=== PATIENT | male | born 1940 | race Caucasian/White ===

== ENCOUNTER 2023-11-08 11:13 | Outpatient (AMB) | payer OTHER, SELFPAY ==
--- NOTE | 2023-11-08 11:22 | MHC.PC.OV ---
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 Division Operations Specialist Required: No Allergies No Known Allergies Allergy (Verified 11/08/23 11:27) Tobacco use date assessed: 11/08/23 Fall risk assessment: No Falls in past year Dental Screening Dental Screen Date: 11/08/23 Did you have a dental visit in the last 12 months?: No Did you have a dental problem in the last 6 months where you did not have access to dental care?: No HPI HPI Comments History of Present Illness Details This is an 83-year-old male with a past medical history of tobacco use disorder, colon cancer, CKD 3A, microscopic hematuria, osteoporosis, BPH, COPD with emphysema, hyperlipidemia and PAD presenting to [facility]. He relocated to [place] from [place] 4 months ago. He lives independently. His sister is local. He is from this area originally. His of 31 years several years ago. The patient had colon cancer some 10 years ago. Patient says he had surgery to remove part of his intestine. He says he did not have chemotherapy or radiation. He denies known recurrence. He saw his specialist shortly before leaving [place] for a follow up appointment. He takes simvastatin and fenofibrate for hyperlipidemia. Patient says he saw a show horse driver within the past year in [place]. They told him his heart was doing good. He was seeing Urology for microscopic hematuria and BPH. Denies frequency, eduin hematuria, hesitancy. He has a history of COPD with emphysema, but he says he has never required medications for this. He denies cough, wheezing and shortness of breath. He smokes 10 cigarettes per day. He has not interested in quitting currently. [facility] Medical History (Updated 11/08/23 @ 16:40 by YEVGENIY Smiley) Tobacco use disorder History of colon cancer CKD stage 3a, GFR 45-59 ml/min Microscopic hematuria Osteoporosis Vitamin D deficiency Hyperuricemia BPH (benign prostatic hyperplasia) Chronic bronchitis with emphysema Hyperlipidemia PAD (peripheral artery disease) Atherosclerosis of aorta Surgical History (Updated 11/08/23 @ 16:34 by YEVGENIY Smiley) History of colectomy Family History (Updated 11/08/23 @ 12:15 by YEVGENIY Smiley) Brother Cancer Social History Housing: Apartment Patient Tobacco Use Status: Current everyday Tobacco user Tobacco use type: Cigarette (5-10 a day) Cigarettes Per Day: 5 e-Cigarette/Vaping Use: Never Used Second Hand Smoke Exposure: No service: No Current occupational status: retired Current occupational exposures/hazards: No Cognitive needs: No Hearing needs: No Vision needs: Yes Questionnaire PHQ-9 Over the last 2 weeks, how often have you been bothered by any of the following problems? 1. Little interest or pleasure in doing things: not at all 2. Feeling down, depressed, or hopeless: not at all 3. Trouble falling or staying asleep, or sleeping too much: not at all 4. Feeling tired or having little energy: not at all 5. Poor appetite or overeating: not at all 6. Feeling bad about yourself - or that you are a failure or have let yourself or your family down: not at all 7. Trouble concentrating on things, such as reading the newspaper or watching television: not at all 8. Moving or speaking so slowly that other people could have noticed. Or the opposite - being so fidgety or restless that you have been moving around a lot more than usual: not at all 9. Thoughts that you would be better off or of hurting yourself in some way: not at all Total score: 0 53045 - PHQ-9 Billing: Yes Source: Developed by Drs. Don Pineda, Toya Stein, Satnam Wen and colleagues, with an educational margaret from [employer]. Thrive Questionnaire Date Thrive assessed: 11/08/23 I am a: Patient What is your living situation today?: I have a steady place to live Within the past 12 months, did the food you bought not last and you didn't have the money to get more?: Never true Within the past 12 months, did you worry whether your food would run out before you got money to buy more?: Never true Do you have trouble paying for medicines?: No Do you have trouble getting transportation to medical appointments?: No Do you have trouble paying your heating and electricity bill?: No Do you have trouble taking care of your child, family member or friend?: No Do you have trouble with day-to-day activities such as bathing, preparing meals, shopping, managing finances, etc.?: No Are you currently unemployed and looking for a job?: No Are you interested in more education?: No Please select the resources that you would like help with: None Currently or been in a relationship where the following occur: No concerns reported THRIVE Score: 0 AUDIT C Alcohol Use Questionnaire (AUDIT-C) 1. How often do you have a drink containing alcohol?: Never 3. How often do you have six or more drinks on one occasion?: Never Total Score: 0 JOCE-7 AMB Questionnaire JOCE-7 Date JOCE - 7 assessed: 11/08/23 Feeling nervous, anxious, or on edge: 0 = Not at all Not being able to stop or control worryin = Not at all Worrying too much about different things: 0 = Not at all Trouble relaxin = Not at all Being so restless that it is hard to sit still: 0 = Not at all Becoming easily annoyed or irritable: 0 = Not at all Feeling afraid as if something awful might happen: 0 = Not at all Total JOCE-7 score (0-4 normal; 5-9 mild; 10-14 moderate; 15-21 severe): 0 Source: Developed by Drs. Don Pineda, Toya Stein, Satnam Wen and colleagues, with an educational margaret from [employer]. JOCE-7 Assessment Billing JOCE-7 Assessment Tool: JOCE-7 Assessment 83590 Review of Systems Const Details: Constitutional: No unexplained weight loss, fever, chills, fatigue or night sweats. Respiratory: No shortness of breath, cough or sputum production. Cardiovascular: No chest pain, chest pressure or chest discomfort. No palpitations or pedal edema. Gastrointestinal: No anorexia, nausea, vomiting or diarrhea. No abdominal pain or blood in stool. Genitourinary: No dysuria, hematuria, urinary frequency. Neurologic: No headache, dizziness, syncope Psychiatric: No depression or anxiety. Physical exam (Primary Care) Vital Signs: Last Vital Signs Temp 97.8 F 11/08/23 11:35 Pulse 68 11/08/23 11:35 BP 130/70 11/08/23 11:35 Pulse Ox 95 11/08/23 11:35 Oxygen Delivery Method Room Air 11/08/23 11:35 BMI result Body Mass Index 24.0 Tobacco/Smoking Status: Tobacco use Status Tobacco use date assessed 11/08/23 11/08/23 11:34 Patient Tobacco Use Status Current everyday Tobacco 11/08/23 11:34 Tobacco use type Cigarette (5-10 a day) 11/08/23 11:34 e-Cigarette/Vaping Use Never Used 11/08/23 11:34 PHQ-9: PHQ-9 Score PHQ-9: Total score 0 11/08/23 12:05 Thrive Assessment: Date of Thrive Assessment Date Thrive assessed 11/08/23 11/08/23 11:48 Currently or been in a relationship where the following occur: No concerns reported Const Other: Constitutional: Alert, in no distress. Head: Normocephalic. Eyes: Pupils are equal, round and reactive to light. Respiratory: Clear to auscultation. Cardiovascular: S1 S2 regular. No murmurs Extremities: Warm and well perfused. No clubbing, cyanosis or edema. Psychiatric: Normal mood and affect Assessment and Plan Assessment & Plan (1) CKD stage 3a, GFR 45-59 ml/min: Code(s): N18.31 - Chronic kidney disease, stage 3a Plan: Avoid NSAIDs and other nephrotoxic medications. Blood pressure is good today. Monitor renal function. (2) Microscopic hematuria: Code(s): R31.29 - Other microscopic hematuria Plan: Patient will need to establish care with Urology in [place]. Referral placed. (3) BPH (benign prostatic hyperplasia): Code(s): N40.0 - Benign prostatic hyperplasia without lower urinary tract symptoms Qualifiers: Lower urinary tract symptom presence: symptoms absent Qualified Code(s): N40.0 - Benign prostatic hyperplasia without lower urinary tract symptoms Plan: No symptoms at present. (4) Chronic bronchitis with emphysema: Code(s): J44.89 - Other specified chronic obstructive pulmonary disease Plan: Patient not interested in smoking cessation at this time. Denies symptoms. We will address further with patient at follow up. I will see if we can determine when he last had a PFT and if he has ever had an LDCT. (5) PAD (peripheral artery disease): Code(s): I73.9 - Peripheral vascular disease, unspecified Plan: Check lipid profile. LDL goal less than 70. We will need to review notes from Cardiology in [place]. Continue statin at this time. Recommend smoking cessation. (6) History of colon cancer: Code(s): Z85.038 - Personal history of other malignant neoplasm of large intestine Plan: Patient says he saw his specialist just before leaving [place] and is not due for follow up at this time. I will review his records in place referral to Gastroenterology when needed for routine surveillance. Orders: Orders Lipid Panel Today E78.5 - Hyperlipidemia, unspecified, I73.9 - Peripheral vascular disease, unspecified, N18.31 - Chronic kidney disease, stage 3a, N40.0 - Benign prostatic hyperplasia without lower urinary tract symptoms, Z85.038 - Personal history of other malignant neoplasm of large intestine Complete Blood Count no Diff Today E78.5 - Hyperlipidemia, unspecified, I73.9 - Peripheral vascular disease, unspecified, N18.31 - Chronic kidney disease, stage 3a, N40.0 - Benign prostatic hyperplasia without lower urinary tract symptoms, Z85.038 - Personal history of other malignant neoplasm of large intestine Comprehensive Met. Panel Today E78.5 - Hyperlipidemia, unspecified, I73.9 - Peripheral vascular disease, unspecified, N18.31 - Chronic kidney disease, stage 3a, N40.0 - Benign prostatic hyperplasia without lower urinary tract symptoms, Z85.038 - Personal history of other malignant neoplasm of large intestine Referrals Urology Referral E78.5 - Hyperlipidemia, unspecified, I73.9 - Peripheral vascular disease, unspecified, N18.31 - Chronic kidney disease, stage 3a, N40.0 - Benign prostatic hyperplasia without lower urinary tract symptoms, R31.29 - Other microscopic hematuria, Z85.038 - Personal history of other malignant neoplasm of large intestine Coding Level of Care Code New Pt Level 4 (06301) Complex EM visit Add On G2211 Diagnoses CKD stage 3a, GFR 45-59 ml/min N18.31 Microscopic hematuria R31.29 Benign prostatic hyperplasia without lower urinary tract symptoms N40.0 Lower urinary tract symptom presence: symptoms absent Chronic bronchitis with emphysema J44.89 PAD (peripheral artery disease) I73.9 History of colon cancer Z85.038 Additional Codes JOCE-7 Assessment Billing - JOCE-7 Assessment Tool: JOCE-7 Assessment 90600 ([id number])
[2023-11-08 11:35] VITALS: BP 130/70; PULSE 68; TEMP 36.6; O2SAT 95; BMI 24.0
== END 2023-11-08 12:36 | disposition home or self-care (01) ==
PROVIDERS: PCP Physician Assistant Medical; Visit Provider Physician Assistant Medical
DX: N18.31 Chronic kidney disease, stage 3a (principal); I73.9 Peripheral vascular disease, unspecified; R31.29 Other microscopic hematuria; N40.0 Benign prostatic hyperplasia without lower urinary tract symptoms; J44.89 Other specified chronic obstructive pulmonary disease; Z85.038 Personal history of other malignant neoplasm of large intestine
CPT/HCPCS: 99204; G2211

== ENCOUNTER 2023-11-12 07:59 | Outpatient (REF) | payer OTHER, SELFPAY ==
[2023-11-12 10:45] LABS: Hematocrit 47.3 % (42.0-52.0); Hemoglobin 15.8 g/dl (14.0-18.0); Mean Corpuscular HGB Conc 33.4 g/dl (31.0-36.0); Mean Corpuscular Hemoglobin 32.3 pg (27.0-33.0); Mean Corpuscular Volume 96.7 fL (80.0-98.0); Mean Platelet Volume 12.4 fL (9.4-12.4); Platelet Count 173 X10*3/uL (160-400); Red Blood Count 4.89 X10*6/uL (4.60-5.80); Red Cell Distribution Width 13.5 % (11.0-16.0)
[2023-11-12 10:59] LABS: Alanine Aminotransferase 25 U/L (0-40); Alkaline Phosphatase 37 U/L (39-117); Anion Gap 14 (12-20); Aspartate Amino Transferase 36 U/L (5-37); Bilirubin Total 0.6 mg/dL (0.0-1.0); Blood Urea Nitrogen 18 mg/dL (9-16); Calcium 9.9 mg/dL (8.4-10.2); Carbon Dioxide 25 mmol/L (22-29); Chloride 109 mmol/L (96-108); Cholesterol 130 mg/dL (<200); Estimated Glomerular Filt Rate 44; Glucose Random 103 mg/dL (60-115); HDL Cholesterol 34 mg/dL (>40); LDL Cholesterol Calculated 64 mg/dL (<100); Potassium 4.1 mmol/L (3.3-5.1); Sodium 144 mmol/L (135-145); Total Protein 7.8 g/dL (6.5-8.0); Triglycerides 162 mg/dL (<150)
== END 2023-11-12 08:00 | disposition home or self-care (01) ==
LOC: HO.WFDLDS 07:59
PROVIDERS: Visit Provider Physician Assistant Medical
DX: N18.31 Chronic kidney disease, stage 3a (principal); Z85.038 Personal history of other malignant neoplasm of large intestine; N40.0 Benign prostatic hyperplasia without lower urinary tract symptoms; E78.5 Hyperlipidemia, unspecified; I73.9 Peripheral vascular disease, unspecified
CPT/HCPCS: 36415; 80053; 80061; 85027

== ENCOUNTER 2024-01-10 12:35 | Outpatient (AMB) | payer OTHER, SELFPAY ==
--- NOTE | 2024-01-10 13:05 | A.OFFVIS_ITS ---
Intake Visit Reasons: BPH Intake Note: New Patient presents for initial visit for BPH Urology Medications: none Blood Thinner: aspirin PVR: 0ml's Hand Cloth Cutter Required: No Accompanied by: Self / Same As Patient Allergies No Known Allergies Allergy (Verified 01/10/24 13:36) Medication List - Last Reconciled 01/10/24 by DRAKE Pierce aspirin (Adult Aspirin Regimen) 81 mg PO DAILY cholecalciferol (vitamin D3) 50 mcg PO DAILY fenofibrate 160 mg PO DAILY multivitamin 1 tab PO DAILY simvastatin 40 mg PO BEDTIME HPI Comments Details: Vincent is an 83-year-old male patient of Dr. Starr. He has a past medical history of mild cognitive impairment, colon cancer, stage 3 kidney disease, microscopic hematuria, vitamin-D deficiency, BPH, chronic bronchitis with emphysema, hyperlipidemia, CAD, and atherosclerosis of aorta. He presents to the office today as a new patient for BPH. In discussion with the patient today he reports moving here from [place] and is looking to establish care. He reports no bothersome urinary issues or concerns. 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 When asked he denies urinary urgency, urinary frequency, incontinence, nocturia, hematuria, dysuria, foul smelling urine, changes to urinary stream, flank pain, fever, and or chills. He is happy with her current voiding parameters. He does however report noting pimples underneath his scrotum. In assessment of the patient today the penis is circumcised and no abnormalities noted within the area. No open areas, lesions, and or drainage noted. He discusses his ongoing issues with itching and dryness throughout his upper and lower extremities. In office urinalysis results reviewed with the patient today. PVR 0 mL Otherwise offers no other issues or concerns at this time. [facility] Medical History Mild cognitive impairment IFG (impaired fasting glucose) Tobacco use disorder History of colon cancer CKD stage 3a, GFR 45-59 ml/min Microscopic hematuria Osteoporosis Vitamin D deficiency Hyperuricemia BPH (benign prostatic hyperplasia) Chronic bronchitis with emphysema Hyperlipidemia PAD (peripheral artery disease) Atherosclerosis of aorta Surgical History History of colectomy Family History Brother Cancer Social History Housing: Apartment Patient Tobacco Use Status: Current everyday Tobacco user Tobacco use type: Cigarette (5-10 a day) Cigarettes Per Day: 5 e-Cigarette/Vaping Use: Never Used Second Hand Smoke Exposure: No service: No Current occupational status: retired Current occupational exposures/hazards: No Cognitive needs: No Hearing needs: No Vision needs: Yes Review of Systems Const All systems reviewed & are unremarkable except as noted in HPI and below Physical Exam Const General: cooperative, healthy appearing, comfortable, no acute distress, well developed, alert and awake Orientation/consciousness: patient oriented x3 Limitations: no limitations HEENT Head: Yes normal to inspection, Yes normocephalic and Yes atraumatic Ears: hearing grossly normal bilaterally Eyes General: appearance normal, both eyes and all related structures Neck Neck: Yes normal visual inspection and Yes trachea midline Chest Chest palpation & inspection: normal inspection of the chest Resp Effort & Inspection: normal respiratory effort and able to speak in complete sentences Cardio Rate: regular rate GI Inspection: Yes normal to inspection General: Yes no CVA tenderness Male General Exam: Yes normal external exam Penis: normal penis and circumcised Meatus: meatus normal Scrotum: scrotum normal Testes: absent testicle on the left Back/Spine/Pelvis Back: no CVA tenderness Skin General skin exam: no rashes or lesions noted Neuro General: patient oriented x3 Extrem General: Yes normal to inspection Psych Appearance: grossly normal and well kempt Mental Status: mental status grossly normal Speech and movement: Normal speech and movement present and Clear speech present Affect: normal affect Attitude: cooperative Thought process: Normal thought process present Thought content: Normal thought content present Insight: Fair insight present (Psych) Judgement: Fair judgement present (Psych) Office Procedures Post Void Residual Post Residual Void Post Void Residual (PVR): 0 08841-Edin Void Residual by ultrasound Results AMB Urinalysis, Automated UA Leukoctes 0 Omkar/uL Last Edit by Sam Ferro on 01/10/24 13:24 UA Nitrite Negative Last Edit by Sam Ferro on 01/10/24 13:24 UA Urobilinogen 0.2 mg/dL Last Edit by Sam Ferro on 01/10/24 13:24 UA Protein 0 mg/dL Last Edit by Sam Ferro on 01/10/24 13:24 UA pH 6.0 Last Edit by Sam Ferro on 01/10/24 13:24 UA Blood 0 Mckinley/uL Last Edit by Sam Ferro on 01/10/24 13:24 UA Specific [place] 1.025 Last Edit by Catarinoycandrea Ferro on 01/10/24 13:24 UA Ketone Negative Last Edit by Sam Ferro on 01/10/24 13:24 UA Bilirubin 0 mg/dL Last Edit by Sam Ferro on 01/10/24 13:24 UA Glucose 0 mg/dL Last Edit by Sam Ferro on 01/10/24 13:24 Results Reviewed Results Reviewed: Laboratory Last Values Urine pH (Auto) 6.0 01/10/24 13:12 Specific [place] (Auto) 1.025 01/10/24 13:12 Urine Protein (Auto) 0 mg/dL 01/10/24 13:12 Glucose (UA)(Auto) 0 mg/dL 01/10/24 13:12 Urine Ketones (Auto) Negative 01/10/24 13:12 Urine Blood (Auto) 0 Mckinley/uL 01/10/24 13:12 Urine Nitrite (Auto) Negative 01/10/24 13:12 Urine Bilirubin (Auto) 0 mg/dL 01/10/24 13:12 Urine Urobilinogen (Auto) 0.2 mg/dL 01/10/24 13:12 Leukocyte Esterase (Auto) 0 Omkar/uL 01/10/24 13:12 Assessment & Plan Assessment & Plan (1) BPH (benign prostatic hyperplasia): Code(s): N40.0 - Benign prostatic hyperplasia without lower urinary tract symptoms Category: Medical Qualifiers: Lower urinary tract symptom presence: symptoms absent Qualified Code(s): N40.0 - Benign prostatic hyperplasia without lower urinary tract symptoms Plan In office urinalysis results reviewed with the patient today; as noted above. PVR 0 mL. Patient currently denies any bothersome urinary issues or concerns. Reports be happy with current voiding parameters. Will obtain PSA for further assessment evaluation. Follow-up in 1 year; or sooner with any issues, concerns, and or questions. Orders: Orders AMB Urinalysis Automated Today Z13.9 - Encounter for screening, unspecified AMB Post Void Residual by ultrasound Today N40.0 - Benign prostatic hyperplasia without lower urinary tract symptoms Prostate Specific Antigen Today N40.0 - Benign prostatic hyperplasia without lower urinary tract symptoms Patient Instructions: The patient had an opportunity to ask questions regarding the treatment plan. All questions were answered. Physical exam, labs, and imaging were discussed and reviewed in detail. As well as risks, benefits, and discussion of treatment choices. No major barriers to understanding were identified. The patient expressed understanding and agreement with the above treatment plan. The patient was made aware they should contact our office by phone for worsening of their current condition, the appearance of new symptoms, or with any questions or concerns. Compliance is encouraged with any medications and follow up testing that is ordered. It is a privilege to be allowed the opportunity to participate in? your urological care.? Again, if you have any questions or concerns If you have any questions or concerns please do not hesitate to contact me. The office is [phone]. This note is constructed using voice recognition software. While every effort has been made to ensure accuracy product strategy director errors may have been included. Yours sincerely, DRAKE Pierce Coding Level of Care Code New Pt Level 3 (39472) Diagnoses Benign prostatic hyperplasia without lower urinary tract symptoms N40.0 Lower urinary tract symptom presence: symptoms absent CPT Codes Post Residual Void - PVR CPT Code: 64873-Yrtm Void Residual by ultrasound ([id number])
== END 2024-01-10 13:40 | disposition home or self-care (01) ==
PROVIDERS: PCP Physician Assistant Medical; Visit Provider Nurse Practitioner Family
DX: N40.0 Benign prostatic hyperplasia without lower urinary tract symptoms (principal); Z13.9 Encounter for screening, unspecified
CPT/HCPCS: 99203

== ENCOUNTER → 2024-01-10 12:35 | Outpatient (BNVA) | payer OTHER, SELFPAY | PROVIDERS: PCP Physician Assistant Medical; Visit Provider Nurse Practitioner Family | DX: N40.0 Benign prostatic hyperplasia without lower urinary tract symptoms (principal) | CPT/HCPCS: 51798; 81003 ==

== ENCOUNTER 2024-01-17 08:16 | Outpatient (REF) | payer OTHER, SELFPAY ==
[2024-01-17 12:15] LABS: Estimated Average Glucose 108 mg/dL; Hemoglobin A1c % 5.4 % (<6.0)
== END 2024-01-17 08:17 | disposition home or self-care (01) ==
LOC: HO.WFDLDS 08:16
PROVIDERS: Referring Provider Nurse Practitioner Family; Visit Provider Physician Assistant Medical
DX: R73.01 Impaired fasting glucose (principal); N40.0 Benign prostatic hyperplasia without lower urinary tract symptoms; Z12.5 Encounter for screening for malignant neoplasm of prostate
CPT/HCPCS: 36415; 83036; 84153

== ENCOUNTER 2024-02-04 10:41 | Outpatient (AMB) | payer OTHER, SELFPAY ==
--- NOTE | 2024-02-04 10:50 | MHC.PC.OV ---
Vital Signs 02/04/24 10:51 Height 5 ft 5 in Weight 142 lb 6 oz BMI 23.7 BP 104/68 Blood Pressure Location Rt brachial Position Sitting Pulse 66 Pulse Source Pulse Oximeter Pulse Oximetry (%) 99 Oxygen Delivery Method Room Air Intake Visit Reasons: follow up Intake Note: Follow up Radio Interference Supervisor Required: No Allergies No Known Allergies Allergy (Verified 02/04/24 10:51) Tobacco use date assessed: 11/08/23 Dental Screening Dental Screen Date: 11/08/23 HPI HPI Comments History of Present Illness Details This is an 83-year-old male with a past medical history of tobacco use disorder, colon cancer, CKD 3A, microscopic hematuria, osteoporosis, BPH, COPD with emphysema, hyperlipidemia and PAD presenting for follow up. He relocated to [place] from [place] 6 months ago. He lives independently. His sister is local. He is from this area originally. His of 31 years several years ago. His former PCP is Dr. Rigoberto Caro (phone [phone]). We only received limited records. The patient had colon cancer some 10 years ago. Patient says he had surgery to remove part of his intestine. Patient says he never had a colostomy. He says he did not have chemotherapy or radiation. He denies known recurrence. He saw his specialist shortly before leaving [place] for a follow up appointment. He takes simvastatin and fenofibrate for hyperlipidemia. LDL is at goal of less than 70. Patient says he saw a medical research assistant within the past year in [place]. He seen by Urology in [place] for ongoing care of microscopic hematuria and BPH. He was instructed to follow up in 1 year. Denies frequency, eduin hematuria, hesitancy. He has a history of COPD with emphysema, but he says he has never required medications for this. He denies cough, wheezing and shortness of breath. He smokes 10 cigarettes per day. He has not interested in quitting currently. ROS: Constitutional: No unexplained weight loss, fever, chills, fatigue or night sweats. Respiratory: No shortness of breath, cough or sputum production. Cardiovascular: No chest pain, chest pressure or chest discomfort. No palpitations or pedal edema. Gastrointestinal: No anorexia, nausea, vomiting or diarrhea. No abdominal pain or blood in stool. Genitourinary: No dysuria, hematuria, urinary frequency. Neurologic: No headache, dizziness, syncope, unilateral weakness, ataxia, numbness or tingling in the extremities. Endocrine: No cold or heat intolerance. No polyuria or polydipsia. Psychiatric: No depression or anxiety. Physical exam: Constitutional: Alert, in no distress. Head: Normocephalic. Eyes: Pupils are equal, round and reactive to light. Extraocular muscles intact. Respiratory: Clear to auscultation. Cardiovascular: S1 S2 regular. No murmurs. Gastrointestinal: Abdomen soft, non-tender, non-distended. Old surgical scar. Normal bowel sounds. No palpable masses. Extremities: Warm and well perfused. No clubbing, cyanosis or edema. Psychiatric: Normal mood and affect [facility] Medical History Mild cognitive impairment IFG (impaired fasting glucose) Tobacco use disorder History of colon cancer CKD stage 3a, GFR 45-59 ml/min Microscopic hematuria Osteoporosis Vitamin D deficiency Hyperuricemia BPH (benign prostatic hyperplasia) Chronic bronchitis with emphysema Hyperlipidemia PAD (peripheral artery disease) Atherosclerosis of aorta Surgical History History of colectomy Family History Brother Cancer Social History Housing: Apartment Patient Tobacco Use Status: Current everyday Tobacco user Tobacco use type: Cigarette (5-10 a day) Cigarettes Per Day: 5 e-Cigarette/Vaping Use: Never Used Second Hand Smoke Exposure: No service: No Current occupational status: retired Current occupational exposures/hazards: No Cognitive needs: No Hearing needs: No Vision needs: Yes Questionnaire Thrive Questionnaire Date Thrive assessed: 11/08/23 JOCE-7 AMB Questionnaire JOCE-7 Date JOCE - 7 assessed: 11/08/23 Source: Developed by Drs. Don Pineda, Toya Stein, Satnam Wen and colleagues, with an educational margaret from [employer]. Physical exam (Primary Care) Vital Signs: Last Vital Signs Pulse 66 02/04/24 10:51 BP 104/68 02/04/24 10:51 Pulse Ox 99 02/04/24 10:51 Oxygen Delivery Method Room Air 02/04/24 10:51 BMI result Body Mass Index 23.7 Tobacco/Smoking Status: Tobacco use Status Tobacco use date assessed 11/08/23 02/04/24 10:54 Patient Tobacco Use Status Current everyday Tobacco 02/04/24 10:54 Tobacco use type Cigarette (5-10 a day) 02/04/24 10:54 e-Cigarette/Vaping Use Never Used 02/04/24 10:54 Thrive Assessment: Date of Thrive Assessment Date Thrive assessed 11/08/23 02/04/24 10:54 Assessment and Plan Assessment & Plan (1) CKD stage 3a, GFR 45-59 ml/min: Code(s): N18.31 - Chronic kidney disease, stage 3a Plan: Avoid NSAIDs and other nephrotoxic medications. Blood pressure is good today. Monitor renal function. (2) Microscopic hematuria: Code(s): R31.29 - Other microscopic hematuria Plan: Patient followed by urology. (3) BPH (benign prostatic hyperplasia): Code(s): N40.0 - Benign prostatic hyperplasia without lower urinary tract symptoms Qualifiers: Lower urinary tract symptom presence: symptoms absent Qualified Code(s): N40.0 - Benign prostatic hyperplasia without lower urinary tract symptoms Plan: No symptoms at present. Followed by Urology. (4) Chronic bronchitis with emphysema: Code(s): J44.89 - Other specified chronic obstructive pulmonary disease Plan: Patient not interested in smoking cessation at this time. Denies symptoms. Declines PFT and LDCT at this time. (5) PAD (peripheral artery disease): Code(s): I73.9 - Peripheral vascular disease, unspecified Plan: LDL goal less than 70. Continue statin. Recommended smoking cessation. We will call his prior PCP's office to see where he was seen for cardiology and/or vascular so we can request records. Patient is referred to vascular surgery. (6) History of colon cancer: Code(s): Z85.038 - Personal history of other malignant neoplasm of large intestine Plan: See above regarding records request. We will do the same for Colorectal surgery. I have referred him to a specialist here for surveillance. Orders: Referrals Colon & Rectal Referral Z85.038 - Personal history of other malignant neoplasm of large intestine Ophthalmology Referral Z01.00 - Encounter for examination of eyes and vision without abnormal findings Vascular Surgery Referral I70.0 - Atherosclerosis of aorta, I73.9 - Peripheral vascular disease, unspecified Patient Instructions: Follow up in 4 months. Coding Level of Care Code Est Pt Level 4 (99341) Complex EM visit Add On G2211 Diagnoses CKD stage 3a, GFR 45-59 ml/min N18.31 Microscopic hematuria R31.29 Benign prostatic hyperplasia without lower urinary tract symptoms N40.0 Lower urinary tract symptom presence: symptoms absent Chronic bronchitis with emphysema J44.89 PAD (peripheral artery disease) I73.9 History of colon cancer Z85.038
[2024-02-04 10:51] VITALS: BP 104/68; PULSE 66; O2SAT 99; BMI 23.7
== END 2024-02-04 11:51 | disposition home or self-care (01) ==
PROVIDERS: PCP Physician Assistant Medical; Visit Provider Physician Assistant Medical
DX: N18.31 Chronic kidney disease, stage 3a (principal); J44.89 Other specified chronic obstructive pulmonary disease; I73.9 Peripheral vascular disease, unspecified; R31.29 Other microscopic hematuria; N40.0 Benign prostatic hyperplasia without lower urinary tract symptoms; Z85.038 Personal history of other malignant neoplasm of large intestine

== ENCOUNTER → 2024-02-04 10:41 | Outpatient (BNVA) | payer OTHER, SELFPAY | PROVIDERS: PCP Physician Assistant Medical; Visit Provider Physician Assistant Medical ==

== ENCOUNTER 2024-03-12 11:18 | Outpatient (AMB) | payer OTHER, SELFPAY ==
--- NOTE | 2024-03-12 11:19 | A.OFFVIS_ITS ---
Vital Signs 03/12/24 11:20 Height 5 ft 5 in Weight 142 lb BMI 23.6 Intake Visit Reasons: personal Hx malignant neoplasm large intestine Intake Note: This patient presents for personal history of malignant neoplasm of the large intestine. Pt c/o; reports last colonoscopy was done in [place], reports no rectal bleeding, pain or pressure. Family Resource Specialist Required: No Accompanied by: Other Relationship Allergies No Known Allergies Allergy (Verified 03/12/24 11:30) Medication List - Last Reconciled 03/12/24 by Manolo Holley MD aspirin (Adult Aspirin Regimen) 81 mg PO DAILY cholecalciferol (vitamin D3) 50 mcg PO DAILY fenofibrate 160 mg PO DAILY multivitamin 1 tab PO DAILY simvastatin 40 mg PO BEDTIME HPI HPI personal Hx malignant neoplasm large intestine: Details: 84-year-old male referred by his java web user interface developer because of a history of colon cancer. The patient says he had colon cancer about 10 years ago. He used to live in [place] and he had been undergoing surveillance there with colonoscopies and Cologuard testing. He says that he just moved back to [place] a few months ago. He says he is up-to-date with this violence. He denies any significant GI complaints. He has good oral intake. He has good bowel movements. He denies any altered bowel habits. He denies any weight loss. [facility] Medical History Mild cognitive impairment IFG (impaired fasting glucose) Tobacco use disorder History of colon cancer CKD stage 3a, GFR 45-59 ml/min Microscopic hematuria Osteoporosis Vitamin D deficiency Hyperuricemia BPH (benign prostatic hyperplasia) Chronic bronchitis with emphysema Hyperlipidemia PAD (peripheral artery disease) Atherosclerosis of aorta Surgical History History of colectomy Family History Brother Cancer Social History Housing: Apartment Patient Tobacco Use Status: Current everyday Tobacco user Tobacco use type: Cigarette (5-10 a day) Cigarettes Per Day: 5 e-Cigarette/Vaping Use: Never Used Second Hand Smoke Exposure: No service: No Current occupational status: retired Current occupational exposures/hazards: No Cognitive needs: No Hearing needs: No Vision needs: Yes Review of Systems Const Denies chills and Denies fever(s) Card Denies chest pain, Denies dyspnea and Denies dyspnea on exertion Resp Denies cough, Denies dyspnea and Denies dyspnea on exertion GI Denies hematochezia and Denies change in bowel habits Denies hematuria and Denies difficulty urinating Musc Denies back pain and Denies limited range of motion Neuro Denies focal weakness and Denies convulsions Psych Denies depression and Denies mood swings Physical Exam Vital Signs: BMI result Body Mass Index 23.6 Const General: comfortable and no acute distress Orientation/consciousness: patient oriented x3 Neck Neck: Yes no lymphadenopathy Resp Auscultation: clear to auscultation bilaterally Cardio Rhythm: regular rhythm GI Palpation (GI): Soft to palpation, nontender and no guarding Neuro General: patient oriented x3 Assessment & Plan Assessment & Plan (1) History of colon cancer: Code(s): Z85.038 - Personal history of other malignant neoplasm of large intestine Category: Medical Plan: He had surgery for colon cancer about 10 years ago in [place]. He says he had undergone surveillance colonoscopy there as well as Cologuard testing He says that he just had these done prior to coming back to [place]. He has been in the state of [place] for just a few months. He is asymptomatic. I told him that with his age, it may not be obligatory to repeat another colonoscopy. I told him that he should follow up with his primary care physician with regards to this. He says he does not want to have another colonoscopy if possible. I told him to check this with his primary care physician down the line. Coding Level of Care Code New Pt Level 3 (43811) Diagnoses History of colon cancer Z85.038
[2024-03-12 11:20] VITALS: BMI 23.6
== END 2024-03-12 11:46 | disposition home or self-care (01) ==
LOC: HO.HGS 11:18
PROVIDERS: PCP Physician Assistant Medical; Visit Provider Surgery
DX: Z85.038 Personal history of other malignant neoplasm of large intestine (principal)
CPT/HCPCS: 99203

== ENCOUNTER → 2024-03-12 11:18 | Outpatient (BNVA) | payer OTHER, SELFPAY | PROVIDERS: PCP Physician Assistant Medical; Visit Provider Surgery ==

== ENCOUNTER 2024-03-24 10:12 | Outpatient (AMB) | payer OTHER, SELFPAY ==
--- NOTE | 2024-03-24 10:51 | MHC.PC.OV ---
Vital Signs 03/24/24 10:52 Height 5 ft 5 in Weight 142 lb 2 oz BMI 23.6 BP 114/64 Blood Pressure Location Lt brachial Position Sitting Pulse 65 Pulse Source Pulse Oximeter Pulse Oximetry (%) 97 Oxygen Delivery Method Room Air Intake Visit Reasons: Pt. is having eye surgery. Intake Note: Bilateral cataracts with Dr Syed. right eye on 03/31/24. Left eye couple weeksk later. (pt unsure exact date) Screener And Blender Required: No Allergies No Known Allergies Allergy (Verified 03/24/24 10:52) Tobacco use date assessed: 11/08/23 Dental Screening Dental Screen Date: 11/08/23 HPI HPI Comments History of Present Illness Details This is an 83-year-old male with a past medical history of tobacco use disorder, colon cancer, CKD 3A, microscopic hematuria, osteoporosis, BPH, COPD with emphysema, hyperlipidemia and PAD presenting for a preop exam. Right eye cataract removal scheduled 03/31/[address] Syed. Left cataract removal is scheduled a couple weeks later, per patient. He forgot the paperwork at home. Patient denies recent illnesses and constitutional symptoms. Patient will have preop lab work done today. He denies history of bleeding disorders or blood clots. He takes baby aspirin daily. Patient is compliant with his medication regimen. See med list below. He has a history of impaired fasting glucose, and his hemoglobin A1c was 5.4% on 01/17/2024. Patient does light housework including vacuuming and he can climb a flight of stairs and walk up a hill without assistance. Patient currently smokes 1 pack every 3 days. He is not interested in quitting. ROS: Constitutional: No unexplained weight loss, fever, chills, fatigue or night sweats. Eyes: No eye pain, acute vision change, discharge or redness. ENT: No hearing loss, sneezing, congestion, runny nose or sore throat. Respiratory: No shortness of breath, cough or sputum production. Cardiovascular: No chest pain, chest pressure or chest discomfort. No palpitations or pedal edema. Gastrointestinal: No anorexia, nausea, vomiting or diarrhea. No abdominal pain or blood in stool. Genitourinary: No dysuria, hematuria, urinary frequency. Neurologic: No headache, dizziness, syncope, unilateral weakness, ataxia, numbness or tingling in the extremities. Hematologic/Lymphatics: No bleeding or bruising. No painful lymph nodes. Skin: No rash Endocrine: No cold or heat intolerance. No polyuria or polydipsia. Physical exam: Constitutional: Alert, in no distress. Eyes: Pupils are equal, round and reactive to light. Extraocular muscles intact. Neck: Supple, Full range of motion. No lymphadenopathy. No palpable thyroid masses. Respiratory: Clear to auscultation. Cardiovascular: S1 S2 regular. No murmurs. Gastrointestinal: Abdomen soft, non-tender, non-distended. Normal bowel sounds. No palpable masses. Neurologic: No focal neurological deficits. Extremities: Warm and well perfused. No clubbing, cyanosis or edema. Psychiatric: Normal mood and affect [facility] Medical History (Updated 03/24/24 @ 11:46 by YEVGENIY Smiley) RBBB Pre-op evaluation Mild cognitive impairment IFG (impaired fasting glucose) Tobacco use disorder History of colon cancer CKD stage 3a, GFR 45-59 ml/min Microscopic hematuria Osteoporosis Vitamin D deficiency Hyperuricemia BPH (benign prostatic hyperplasia) Chronic bronchitis with emphysema Hyperlipidemia PAD (peripheral artery disease) Atherosclerosis of aorta Surgical History History of colectomy Family History Brother Cancer Social History Housing: Apartment Patient Tobacco Use Status: Current everyday Tobacco user Tobacco use type: Cigarette (5-10 a day) Cigarettes Per Day: 5 e-Cigarette/Vaping Use: Never Used Second Hand Smoke Exposure: No service: No Current occupational status: retired Current occupational exposures/hazards: No Cognitive needs: No Hearing needs: No Vision needs: Yes Questionnaire Thrive Questionnaire Date Thrive assessed: 11/08/23 JOCE-7 AMB Questionnaire JOCE-7 Date JOCE - 7 assessed: 11/08/23 Source: Developed by Drs. Don Pineda, Toya Stein, Satnam Wen and colleagues, with an educational margaret from [employer]. Physical exam (Primary Care) Vital Signs: Last Vital Signs Pulse 65 03/24/24 10:52 BP 114/64 03/24/24 10:52 Pulse Ox 97 03/24/24 10:52 Oxygen Delivery Method Room Air 03/24/24 10:52 BMI result Body Mass Index 23.6 Tobacco/Smoking Status: Tobacco use Status Tobacco use date assessed 11/08/23 03/24/24 10:54 Patient Tobacco Use Status Current everyday Tobacco 03/24/24 10:54 Tobacco use type Cigarette (5-10 a day) 03/24/24 10:54 e-Cigarette/Vaping Use Never Used 03/24/24 10:54 Thrive Assessment: Date of Thrive Assessment Date Thrive assessed 11/08/23 03/24/24 10:54 Office Procedures EKG Details: EKG shows sinus bradycardia with a ventricular rate of 58 beats per minute and a right bundle branch block. [id number], Complete Coding Level of Care Code Est Pt Level 4 (73937) Complex EM visit Add On G2211 Diagnoses Pre-op evaluation Z01.818 CKD stage 3a, GFR 45-59 ml/min N18.31 IFG (impaired fasting glucose) R73.01 Hyperlipidemia E78.5 PAD (peripheral artery disease) I73.9 History of colon cancer Z85.038 RBBB I45.10 CPT Codes EKG - CPT: 26625-[id number], Complete ([id number]) Assessment & Plan Assessment & Plan (1) Pre-op evaluation: Code(s): Z01.818 - Encounter for other preprocedural examination Category: Medical (2) CKD stage 3a, GFR 45-59 ml/min: Code(s): N18.31 - Chronic kidney disease, stage 3a Category: Medical (3) IFG (impaired fasting glucose): Code(s): R73.01 - Impaired fasting glucose Category: Medical (4) Hyperlipidemia: Code(s): E78.5 - Hyperlipidemia, unspecified Category: Medical (5) PAD (peripheral artery disease): Code(s): I73.9 - Peripheral vascular disease, unspecified Category: Medical (6) History of colon cancer: Code(s): Z85.038 - Personal history of other malignant neoplasm of large intestine Category: Medical (7) RBBB: Code(s): I45.10 - Unspecified right bundle-branch block Category: Medical Plan: Patient denies cardiopulmonary symptoms. Ordered echocardiogram. Plan The patient is considered to be at average risk for complications for this low risk procedure. METS score is at least 4. Patient was instructed to hold aspirin and all other NSAIDs 7 days prior to the procedure. He can resume aspirin the day after the procedure. He can take acetaminophen as needed for pain. He can continue his other medications. A copy of his EKG, and his lab results once available, will be forwarded to Dr. Syed along with my visit note. Orders: Orders UA w Microscopic Today I73.9 - Peripheral vascular disease, unspecified, N18.31 - Chronic kidney disease, stage 3a, R31.29 - Other microscopic hematuria, R39.9 - Unspecified symptoms and signs involving the genitourinary system, R73.01 - Impaired fasting glucose, Z01.818 - Encounter for other preprocedural examination Complete Blood Count Auto Diff Today I73.9 - Peripheral vascular disease, unspecified, N18.31 - Chronic kidney disease, stage 3a, R31.29 - Other microscopic hematuria, R73.01 - Impaired fasting glucose, Z01.818 - Encounter for other preprocedural examination Prothrombin Time INR Today I73.9 - Peripheral vascular disease, unspecified, N18.31 - Chronic kidney disease, stage 3a, R31.29 - Other microscopic hematuria, R73.01 - Impaired fasting glucose, Z01.818 - Encounter for other preprocedural examination, Z79.01 - penitentiary (current) use of anticoagulants CA echo transthoracic complete Today I45.10 - Unspecified right bundle-branch block Comprehensive Met. Panel Today I73.9 - Peripheral vascular disease, unspecified, N18.31 - Chronic kidney disease, stage 3a, R31.29 - Other microscopic hematuria, R73.01 - Impaired fasting glucose, Z01.818 - Encounter for other preprocedural examination Urine Culture Today I73.9 - Peripheral vascular disease, unspecified, N18.31 - Chronic kidney disease, stage 3a, R31.29 - Other microscopic hematuria, R39.9 - Unspecified symptoms and signs involving the genitourinary system, R73.01 - Impaired fasting glucose, Z01.818 - Encounter for other preprocedural examination TSH reflex Free T4 Today I73.9 - Peripheral vascular disease, unspecified, N18.31 - Chronic kidney disease, stage 3a, R31.29 - Other microscopic hematuria, R73.01 - Impaired fasting glucose, Z01.818 - Encounter for other preprocedural examination AMB EKG-In Office Today Z01.818 - Encounter for other preprocedural examination
[2024-03-24 10:52] VITALS: BP 114/64; PULSE 65; O2SAT 97; BMI 23.6
== END 2024-03-24 11:56 | disposition home or self-care (01) ==
PROVIDERS: PCP Physician Assistant Medical; Visit Provider Physician Assistant Medical
DX: N18.31 Chronic kidney disease, stage 3a (principal); I73.9 Peripheral vascular disease, unspecified; Z01.818 Encounter for other preprocedural examination; I45.10 Unspecified right bundle-branch block; R73.01 Impaired fasting glucose; E78.5 Hyperlipidemia, unspecified; Z85.038 Personal history of other malignant neoplasm of large intestine

== ENCOUNTER → 2024-03-24 10:12 | Outpatient (BNVA) | payer OTHER, SELFPAY | PROVIDERS: PCP Physician Assistant Medical; Visit Provider Physician Assistant Medical | DX: Z01.818 Encounter for other preprocedural examination (principal); H26.9 Unspecified cataract; N18.31 Chronic kidney disease, stage 3a; R73.01 Impaired fasting glucose; E78.5 Hyperlipidemia, unspecified; I73.9 Peripheral vascular disease, unspecified; I45.10 Unspecified right bundle-branch block; Z85.038 Personal history of other malignant neoplasm of large intestine | CPT/HCPCS: 93005 ==

== ENCOUNTER 2024-03-24 12:38 | Outpatient (REF) | payer OTHER, SELFPAY ==
[2024-03-24 14:08] LABS: MANUAL DIFF FLAG NO
[2024-03-24 14:12] LABS: Basophils Percent Auto 0.6 % (0-2); Eosinophils Absolute Auto 0.2 X10*3/uL (0.0-0.4); Eosinophils Percent Auto 2.6 % (0-4); Hematocrit 47.9 % (42.0-52.0); Hemoglobin 16.1 g/dl (14.0-18.0); Imm Gran Abs Auto 0.02 X10*3/uL (0.00-0.03); Imm Gran Pct Auto 0.3 % (0.0-0.4); Lymphocytes Absolute Auto 1.7 X10*3/uL (1.2-4.9); Lymphocytes Percent Auto 26.3 % (20-40); Mean Corpuscular HGB Conc 33.6 g/dl (31.0-36.0); Mean Corpuscular Hemoglobin 32.1 pg (27.0-33.0); Mean Corpuscular Volume 95.4 fL (80.0-98.0); Mean Platelet Volume 12.8 fL (9.4-12.4); Monocytes Absolute Auto 0.6 X10*3/uL (0.1-1.2); Monocytes Percent Auto 9.7 % (2-11); Neutrophils Percent Auto 60.5 % (45-73); Platelet Count 177 X10*3/uL (160-400); Red Blood Count 5.02 X10*6/uL (4.60-5.80); Red Cell Distribution Width 14.1 % (11.0-16.0); White Blood Count 6.6 X10*3/uL (4.8-10.8)
[2024-03-24 14:14] LABS: Appearance Urine Clear; Color Urine Dark Yellow; Glucose Urine UA Negative (Negative); Leukocyte Esterase Urine Negative (Negative); Nitrite Urine Negative (Negative); PH 5.5 (5.0-9.0); Specific Gravity - Urine 1.015 (1.005-1.025); Urine Blood Negative (Negative); Urine Ketones Negative (Negative); Urine Protein Negative (Neg-Trace)
[2024-03-24 14:20] LABS: Prothrombin Time 11.2 SEC (10.9-12.4)
[2024-03-24 14:36] LABS: Bacteria Urine None Seen (None Seen); Hyaline Casts Urine 0-2 /LPF (0-2); RBC Urine 0-2 /HPF (0-2); Squamous Epithelial Cell Urine 0-2 /HPF (0-2); WBC Urine 0-5 /HPF (0-5)
[2024-03-24 14:44] LABS: Alanine Aminotransferase 29 U/L (0-40); Albumin Level 4.3 g/dL (3.5-5.0); Alkaline Phosphatase 35 U/L (39-117); Anion Gap 15 (12-20); Aspartate Amino Transferase 51 U/L (5-37); Bilirubin Total 0.8 mg/dL (0.0-1.0); Blood Urea Nitrogen 16 mg/dL (9-16); Calcium 10.8 mg/dL (8.4-10.2); Carbon Dioxide 26 mmol/L (22-29); Chloride 108 mmol/L (96-108); Estimated Glomerular Filt Rate 49; Glucose Random 92 mg/dL (60-115); Potassium 4.6 mmol/L (3.3-5.1); Sodium 144 mmol/L (135-145); Total Protein 8.3 g/dL (6.5-8.0)
[2024-03-24 14:57] LABS: TSH reflex Free T4 1.74 uIU/mL (0.32-4.0)
== END 2024-03-24 12:39 | disposition home or self-care (01) ==
LOC: HO.WFDLDS 12:38
PROVIDERS: Visit Provider Physician Assistant Medical
DX: Z01.818 Encounter for other preprocedural examination (principal); R73.01 Impaired fasting glucose; R39.9 Unspecified symptoms and signs involving the genitourinary system; N18.31 Chronic kidney disease, stage 3a; R31.29 Other microscopic hematuria; I73.9 Peripheral vascular disease, unspecified; Z79.01 Long term (current) use of anticoagulants
CPT/HCPCS: 36415; 80053; 81001; 84443; 85025; 85610; 87086

== ENCOUNTER 2024-11-20 09:31 | Outpatient (AMB) | payer MEDICARE, SELFPAY ==
--- NOTE | 2024-11-20 09:58 | MHC.PC.OV ---
Vital Signs 11/20/24 10:04 Height 5 ft 5 in Weight 143 lb 2 oz BMI 23.8 BP 132/78 Blood Pressure Location Rt brachial Position Sitting Pulse 62 Pulse Source Pulse Oximeter Temp 97.2 F Temp Source Temporal Artery Scan Pulse Oximetry (%) 96 Oxygen Delivery Method Room Air Intake Visit Reasons: follow up Intake Note: Vincent presents in the office today for a follow up. Patient stopped taking his aspirin before his cataract surgery and never started them again. Questioning where he needs to be taking them Allergies No Known Allergies Allergy (Verified 11/20/24 10:00) Medication List - Last Reconciled 11/21/24 by YEVGENIY Smiley aspirin (Adult Aspirin Regimen) 81 mg PO DAILY cholecalciferol (vitamin D3) 50 mcg PO DAILY fenofibrate 160 mg PO DAILY krill oil taking 350mg QD multivitamin 1 tab PO DAILY simvastatin 40 mg PO BEDTIME Tobacco use date assessed: 11/20/24 Fall risk assessment: No Falls in past year Last assessed Fall Risk: 11/20/24 Dental Screening Dental Screen Date: 11/20/24 Did you have a dental visit in the last 12 months?: No Did you have a dental problem in the last 6 months where you did not have access to dental care?: No Was dental information given to patient?: Patient declined HPI HPI Comments History of Present Illness Details This is an 84-year-old male with a past medical history of tobacco use disorder, colon cancer in remission, CKD 3A, microscopic hematuria, osteoporosis, BPH, COPD with emphysema, hyperlipidemia and PAD presenting for follow up. He relocated to [place] from [place] 12 months ago. He lives independently. His sister is local. He is from this area originally. His of 31 years several years ago. His former PCP is Dr. Rigoberto Caro. We only received limited records. The patient had colon cancer some 10 years ago. Patient says he had surgery to remove part of his intestine. Patient says he never had a colostomy. He says he did not have chemotherapy or radiation. He denies known recurrence. He underwent surveillance colonoscopy before moving to [place], and he is not interested in further surveillance unless he develops concerning symptoms. He cites his age as the reason. Cardiovascular-He takes simvastatin and fenofibrate for hyperlipidemia and daily baby aspirin which also alleviates aches and pain. LDL is at goal of less than 70. He had a nurse outreach case manager in [place], but he is not interested in cardiovascular referral again citing his age. He denies chest pain and shortness of breath. His last EKG was consistent with a RBBB, but he did not get the echo. He would like to have it done in [facility]. He is prediabetic. His last A1C was 5.4%. He seen by Urology in [place] for ongoing care of microscopic hematuria and BPH. He was instructed to follow up in 1 year. Denies frequency, eduin hematuria, hesitancy. He has a history of COPD with emphysema, but he says he has never required medications for this. He denies cough, wheezing and shortness of breath. He smokes 10 cigarettes per day. He has not interested in quitting currently. Patient reports that is up to date with COVID-19, flu, tetanus and pneumonia vaccine and declines Shigrix. ROS: Constitutional: No unexplained weight loss, fever, chills, fatigue or night sweats. Eyes: No vision changes, blurry vision, double vision, eye pain, eye redness, eye discharge. Respiratory: No shortness of breath, cough or sputum production. Cardiovascular: No chest pain, chest pressure or chest discomfort. No palpitations or pedal edema. Gastrointestinal: No anorexia, nausea, vomiting or diarrhea. No abdominal pain or blood in stool. Neurologic: No headache, dizziness, syncope, unilateral weakness, ataxia, numbness or tingling in the extremities. Endocrine: No cold or heat intolerance. No polyuria or polydipsia. Psychiatric: No depression or anxiety. Physical exam: Constitutional: Alert, in no distress. Neck: Supple, Full range of motion. No lymphadenopathy. Respiratory: Clear to auscultation. Cardiovascular: S1 S2 regular. No murmurs. No carotid bruits. Gastrointestinal: Abdomen soft, non-tender, non-distended. Normal bowel sounds. No palpable masses. Neurologic: No focal neurological deficits. Musculoskeletal: No gross deformities. Normal range of motion. Extremities: Warm and well perfused. No clubbing, cyanosis or edema. Psychiatric: Normal mood and affect [facility] Medical History (Updated 03/24/24 @ 11:46 by YEVGENIY Smiley) RBBB Pre-op evaluation Mild cognitive impairment IFG (impaired fasting glucose) Tobacco use disorder History of colon cancer CKD stage 3a, GFR 45-59 ml/min Microscopic hematuria Osteoporosis Vitamin D deficiency Hyperuricemia BPH (benign prostatic hyperplasia) Chronic bronchitis with emphysema Hyperlipidemia PAD (peripheral artery disease) Atherosclerosis of aorta Surgical History History of colectomy Family History Brother Cancer Social History (Updated 11/20/24 @ 10:03 by Breonna Cortes MA) Housing: Apartment Alcohol intake: never Patient Tobacco Use Status: Current everyday Tobacco user Tobacco use type: Cigarette Cigarettes Per Day: 5 e-Cigarette/Vaping Use: Never Used Second Hand Smoke Exposure: No service: No Current occupational status: retired Current occupational exposures/hazards: No Cognitive needs: No Hearing needs: No Vision needs: Yes Questionnaire PHQ-9 Over the last 2 weeks, how often have you been bothered by any of the following problems? 1. Little interest or pleasure in doing things: not at all 2. Feeling down, depressed, or hopeless: not at all 3. Trouble falling or staying asleep, or sleeping too much: not at all 4. Feeling tired or having little energy: not at all 5. Poor appetite or overeating: not at all 6. Feeling bad about yourself - or that you are a failure or have let yourself or your family down: not at all 7. Trouble concentrating on things, such as reading the newspaper or watching television: not at all 8. Moving or speaking so slowly that other people could have noticed. Or the opposite - being so fidgety or restless that you have been moving around a lot more than usual: not at all 9. Thoughts that you would be better off or of hurting yourself in some way: not at all Total score: 0 Depression Screening Interpretation: Negative Depression Screening Done: Yes 20138 - PHQ-9 Billing: Yes Source: Developed by Drs. Don Pineda, Toya Stein, Satnam Wen and colleagues, with an educational margaret from [email or web address] Thrive Questionnaire Date Thrive assessed: 11/20/24 I am a: Patient What is your living situation today?: I have a steady place to live Within the past 12 months, did the food you bought not last and you didn't have the money to get more?: Never true Within the past 12 months, did you worry whether your food would run out before you got money to buy more?: Never true Do you have trouble paying for medicines?: No Do you have trouble getting transportation to medical appointments?: No Do you have trouble paying your heating and electricity bill?: No Do you have trouble taking care of your child, family member or friend?: No Do you have trouble with day-to-day activities such as bathing, preparing meals, shopping, managing finances, etc.?: No Are you currently unemployed and looking for a job?: No Are you interested in more education?: No Please select the resources that you would like help with: None Currently or been in a relationship where the following occur: No concerns reported THRIVE Score: 0 AUDIT C Alcohol Use Questionnaire (AUDIT-C) 1. How often do you have a drink containing alcohol?: Never 3. How often do you have six or more drinks on one occasion?: Never Total Score: 0 JOCE-7 AMB Questionnaire JOCE-7 Date JOCE - 7 assessed: 11/20/24 Feeling nervous, anxious, or on edge: 0 = Not at all Not being able to stop or control worryin = Not at all Worrying too much about different things: 0 = Not at all Trouble relaxin = Not at all Being so restless that it is hard to sit still: 0 = Not at all Becoming easily annoyed or irritable: 0 = Not at all Feeling afraid as if something awful might happen: 0 = Not at all Total JOCE-7 score (0-4 normal; 5-9 mild; 10-14 moderate; 15-21 severe): 0 Source: Developed by Drs. Don Pineda, Toya Stein, Satnam Wen and colleagues, with an educational margaret from [email or web address] Physical exam (Primary Care) Vital Signs: Last Vital Signs Temp 97.2 F 11/20/24 10:04 Pulse 62 11/20/24 10:04 BP 132/78 11/20/24 10:04 Pulse Ox 96 11/20/24 10:04 Oxygen Delivery Method Room Air 11/20/24 10:04 BMI result Body Mass Index 23.8 Tobacco/Smoking Status: Tobacco use Status Tobacco use date assessed 11/20/24 11/20/24 10:08 Patient Tobacco Use Status Current everyday Tobacco 11/20/24 10:03 Tobacco use type Cigarette 11/20/24 10:03 e-Cigarette/Vaping Use Never Used 11/20/24 10:03 PHQ-9: PHQ-9 Score PHQ-9: Total score 0 11/20/24 10:44 Depression Screening Interpretation: Negative Thrive Assessment: Date of Thrive Assessment Date Thrive assessed 11/20/24 11/20/24 10:08 Currently or been in a relationship where the following occur: No concerns reported Coding Level of Care Code Est Pt Level 4 (42741) Complex EM visit Add On G2211 Diagnoses PAD (peripheral artery disease) I73.9 Hyperlipidemia E78.5 RBBB I45.10 CKD stage 3a, GFR 45-59 ml/min N18.31 Benign prostatic hyperplasia without lower urinary tract symptoms N40.0 Lower urinary tract symptom presence: symptoms absent Microscopic hematuria R31.29 History of colon cancer Z85.038 Tobacco use disorder F17.200 Additional Codes PHQ-9 - 03111 - PHQ-9 Billing: Yes ([id number]) Assessment & Plan Assessment & Plan (1) PAD (peripheral artery disease): Code(s): I73.9 - Peripheral vascular disease, unspecified Category: Medical (2) Hyperlipidemia: Code(s): E78.5 - Hyperlipidemia, unspecified Category: Medical (3) RBBB: Code(s): I45.10 - Unspecified right bundle-branch block Category: Medical (4) CKD stage 3a, GFR 45-59 ml/min: Code(s): N18.31 - Chronic kidney disease, stage 3a Category: Medical (5) BPH (benign prostatic hyperplasia): Code(s): N40.0 - Benign prostatic hyperplasia without lower urinary tract symptoms Category: Medical Qualifiers: Lower urinary tract symptom presence: symptoms absent Qualified Code(s): N40.0 - Benign prostatic hyperplasia without lower urinary tract symptoms (6) Microscopic hematuria: Code(s): R31.29 - Other microscopic hematuria Category: Medical (7) History of colon cancer: Code(s): Z85.038 - Personal history of other malignant neoplasm of large intestine Category: Medical (8) Tobacco use disorder: Code(s): F17.200 - Nicotine dependence, unspecified, uncomplicated Category: Medical Plan in summary this is an 84 year old male with the above pmhx who presents today for routine follow up. Overall he reports feeling well. He is compliant with his medications. He declines further surveillance for colon cancer and cardiovascular follow up citing his age though he says he would seek evaluation if he develops concerning symptoms. I recommended smoking cessation and reviewed methods, but he is not interested at this time. We reviewed the Mediterranean diet, and I encouraged cardiovascular exercise as tolerated. He should lower carbohydrates and sugars in his diet. Monitor hemoglobin a1c and lipid panel. Continue current medications. I reminded him to have his lab work done. Repeat labs were recommended due to some abnormalities previously discussed. He understands and will get them done. Follow up in 6 months. Orders: Orders Lipid Panel 11/20/24 E78.5 - Hyperlipidemia, unspecified Hemoglobin A1c 11/20/24 R73.01 - Impaired fasting glucose
[2024-11-20 10:04] VITALS: BP 132/78; PULSE 62; TEMP 36.2; O2SAT 96; BMI 23.8
== END 2024-11-20 10:55 | disposition home or self-care (01) ==
LOC: HO.HMCFM 09:32
PROVIDERS: PCP Physician Assistant Medical; Visit Provider Physician Assistant Medical
DX: I73.9 Peripheral vascular disease, unspecified (principal); E78.5 Hyperlipidemia, unspecified; I45.10 Unspecified right bundle-branch block; N18.31 Chronic kidney disease, stage 3a; N40.0 Benign prostatic hyperplasia without lower urinary tract symptoms; R31.29 Other microscopic hematuria; Z85.038 Personal history of other malignant neoplasm of large intestine; F17.200 Nicotine dependence, unspecified, uncomplicated

== ENCOUNTER → 2024-11-20 09:31 | Outpatient (BNVA) | payer MEDICARE, SELFPAY | PROVIDERS: PCP Physician Assistant Medical; Visit Provider Physician Assistant Medical | DX: I73.9 Peripheral vascular disease, unspecified (principal); E78.5 Hyperlipidemia, unspecified; I45.10 Unspecified right bundle-branch block; N18.31 Chronic kidney disease, stage 3a; N40.0 Benign prostatic hyperplasia without lower urinary tract symptoms; R31.29 Other microscopic hematuria; J43.9 Emphysema, unspecified; F17.210 Nicotine dependence, cigarettes, uncomplicated; Z85.038 Personal history of other malignant neoplasm of large intestine; Z79.82 Long term (current) use of aspirin; Z79.899 Other long term (current) drug therapy | CPT/HCPCS: 96127; 99212 ==

== ENCOUNTER 2024-11-20 11:39 | Outpatient (REF) | payer MEDICARE, SELFPAY ==
[2024-11-20 16:49] LABS: Alanine Aminotransferase 29 U/L (0-40); Albumin Level 4.4 g/dL (3.5-5.0); Alkaline Phosphatase 33 U/L (39-117); Anion Gap 13 (12-20); Aspartate Amino Transferase 46 U/L (5-37); Blood Urea Nitrogen 16 mg/dL (9-16); Calcium 9.9 mg/dL (8.4-10.2); Carbon Dioxide 26 mmol/L (22-29); Chloride 108 mmol/L (96-108); Cholesterol 135 mg/dL (<200); Estimated Glomerular Filt Rate 49; HDL Cholesterol 32 mg/dL (>40); Potassium 4.4 mmol/L (3.3-5.1); Sodium 143 mmol/L (135-145); Total Protein 7.6 g/dL (6.5-8.0); Triglycerides 179 mg/dL (<150)
[2024-11-20 16:56] LABS: Hemoglobin A1C 191.5433 umol/L; Total Hemoglobin (HGBA1C) 4941.8757 umol/L
[2024-11-24 16:53] LABS: VITAMIN D (1,25 OH) D3 35 pg/mL; Vit D (1,25-Dihydroxy) Total 35 pg/mL (18-72); Vitamin D (1,25 OH) D2 <8 pg/mL
== END 2024-11-20 11:40 | disposition home or self-care (01) ==
LOC: HO.WFDLDS 11:39
PROVIDERS: Visit Provider Physician Assistant Medical
DX: E83.52 Hypercalcemia (principal); R79.89 Other specified abnormal findings of blood chemistry; R73.01 Impaired fasting glucose; E78.5 Hyperlipidemia, unspecified
CPT/HCPCS: 36415; 80053; 80061; 82652; 83036